=== PATIENT | male | born 1945 | race Caucasian/White ===

== ENCOUNTER 2016-05-04 11:19 | Emergency (ER) | payer MEDICARE, BC ==
[2016-05-04] MEDS ORDERED: ONDANSETRON HCL 4 MG/2 ML SOL IV ONE (11:28)
[2016-05-04] MEDS ORDERED: SODIUM CHLORIDE 0.9% 1000 ML SOL IV SCH (11:30)
[2016-05-04] MEDS ORDERED: ONDANSETRON HCL 4 MG/2 ML SOL ONE (11:40)
[2016-05-04 11:55] LABS: BASOPHILS % (AUTO) 1 % (0-3); EOSINOPHILS % (AUTO) 4 % (0-9); HEMATOCRIT 36 % (39-53); MEAN CORPUSCULAR HGB CONC 33.1 gm/dl (32.0-36.0); MEAN CORPUSCULAR VOLUME 91 fL (80-100); MONOCYTES % (AUTO) 10.5 % (0-12); NEUTROPHILS % (AUTO) 53.4 % (37-80)
[2016-05-04 12:14] LABS: CALCIUM 7.7 mg/dl (8.5-10.1); GLOM FILT RATE 54 mL/min (>60); SODIUM 139 mMol/L (136-145)
[2016-05-04 12:39] VITALS: TEMP 95.9; O2SAT 100
[2016-05-04 12:47] VITALS: BP 134/75; PULSE 56; RESP 16
== END 2016-05-04 13:17 | disposition home or self-care (01) | DRG 641 ==
LOC: ED 11:19
DX: E86.0 Dehydration (principal)
CPT/HCPCS: 36415; 80048; 84484; 85025; 93005; 96365; 96374; 99284; J2405